=== PATIENT | male | born 2000 | race Caucasian/White ===

== ENCOUNTER 2021-10-07 11:00 | Emergency (ER) | payer OTHER ==
[~2021-10-07] VITALS: Ht 180.3 cm; Wt 84.1 kg
[2021-10-07] MEDS ORDERED: PROPARACAINE 0.5% OPHTH SOL 15ML OD ONE (15:55)
[2021-10-07] MEDS ORDERED: FLUORESCEIN OPHTH 1 MG STRIP OD ONE (15:55)
[2021-10-07] MEDS ORDERED: CIPR0.3S6 OD (16:58)
[2021-10-07 17:26] VITALS: BP 139/62
== END 2021-10-07 17:57 | disposition home or self-care (01) ==
LOC: M ED 11:00
DX: S05.01XA Injury of conjunctiva and corneal abrasion without foreign body, right eye, initial encounter (principal); X58.XXXA Exposure to other specified factors, initial encounter; Y92.89 Other specified places as the place of occurrence of the external cause